=== PATIENT | female | born 1975 | race Caucasian/White ===

== ENCOUNTER → 2025-01-06 09:38 | Outpatient (CLI) | payer OTHER, SELFPAY ==
[2025-01-06 10:54] LABS: Add Manual Diff / Slide Review NO; Hematocrit 33.7 % (36-46); Hemoglobin 10.7 g/dL (12.0-16.0); Lymphocytes Absolute Auto 1400 /uL (1100-4500); Mean Corpuscular HGB Conc 31.8 % (30-36); Mean Corpuscular Hemoglobin 22.0 PG (26-34); Mean Corpuscular Volume 69.3 fL (80-100); Platelet Count 392 X10^3/uL (150-400)
[2025-01-06 11:35] LABS: Alanine Aminotransferase 24 IU/L (<35); Albumin 4.5 g/dL (3.5-5.0); Albumin Globulin Ratio 1.6 (1.0-2.8); Alkaline Phosphatase 75 U/L (38-126); Blood Urea Nitrogen 16 mg/dL (7-17); Calcium 9.2 mg/dL (8.4-10.2); Carbon Dioxide 25 mmol/L (22-32); Chloride 104 mmol/L (98-107); Cholesterol 228 mg/dL (140-199); Estimated Glomerular Filt Rate > 60 mL/min (>60); Globulin 2.9 g/dL (1.7-4.1); Glucose 85 mg/dL (70-99); HDL Cholesterol 65 mg/dL (40-60); HEMOLYSIS < 15 (0-50); Potassium 4.0 mmol/L (3.4-5.1); Sodium 137 mmol/L (137-145); Total Protein 7.4 g/dL (6.3-8.2); Triglycerides 60 mg/dL (35-150)
[2025-01-06 11:46] LABS: Anisocytosis 1+; Microcytosis 1+
[2025-01-06 11:50] LABS: Follicle Stimulating Hormone 26.9 mIU/mL
[2025-01-06 12:05] LABS: TSH w/ Reflex to FT4 0.90 uIU/mL (0.47-4.68)
== END ==
LOC: LAB 09:39
PROVIDERS: PCP Family Medicine; Referring Provider Family Medicine; Visit Provider Family Medicine
DX: N93.9 Abnormal uterine and vaginal bleeding, unspecified (principal); R53.82 Chronic fatigue, unspecified; Z82.49 Family history of ischemic heart disease and other diseases of the circulatory system
CPT/HCPCS: 36415; 80053; 80061; 83001; 83002; 84146; 84443; 85025

== ENCOUNTER → 2025-01-12 07:42 | Outpatient (CLI) | payer OTHER, SELFPAY ==
--- NOTE | 2025-01-12 07:43 | DI.US.S_ITS ---
PROCEDURE: US PELVIC COMPLETE INDICATIONS: AUB TECHNIQUE: Real-time scanning was performed of the pelvic organs, with image documentation. Additional endovaginal scanning was necessary due to incomplete visualization of the adnexal and endometrial structures by transabdominal scanning. COMPARISON: None. FINDINGS: Uterus: 8.6 x 3.7 x 4.9 cm. Retroverted positioning. Endometrium measures 6 mm. Ovaries: Nonenlarged ovaries, measuring 3 cc bilaterally. Other: Prominent left uterine vessels are seen. IMPRESSION: Retroverted uterus. Endometrium measures 6 mm, which is within normal limits assuming patient is premenopausal. Nonenlarged ovaries. Distended left periuterine vessels, which can sometimes be associated with pelvic congestion. Dictated by: Kang Ballesteros M.D. on 01/12/2025 at 8:27 Approved by: Kang Ballesteros M.D. on 01/12/2025 at 8:28
== END ==
LOC: US 07:43
PROVIDERS: PCP Family Medicine; Referring Provider Family Medicine; Visit Provider Family Medicine
DX: N93.9 Abnormal uterine and vaginal bleeding, unspecified (principal); N85.4 Malposition of uterus
CPT/HCPCS: 76830; 76856

== ENCOUNTER → 2025-01-18 15:05 | Outpatient (CLI) | payer OTHER, SELFPAY ==
--- NOTE | 2025-01-18 15:07 | DI.MG.S_ITS ---
MM screening mammo BI: 01/18/2025. BI-RADS: 2 CLINICAL: 49-year old female for bilateral screening mammogram. Tyrer-Cuzick lifetime risk of 9.1%. No personal or first-degree family history of breast cancer. PRIOR EXAMS: 02/06/2023. MAMMOGRAPHY TECHNIQUE: 2D and 3D (tomosynthesis) digital mammographic views obtained, with additional images as needed for full coverage. Current study was also evaluated with a Computer Aided Detection (CAD) system. DENSITY C. The breasts are heterogeneously dense, which may obscure small masses. MAMMOGRAPHY FINDINGS Bilateral: Benign-appearing masses noted. There are no suspicious masses, calcifications, or other findings in the breast. IMPRESSION: * No evidence of malignancy with benign findings. RECOMMENDATIONS Bilateral * Annual screening mammography. OVERALL ASSESSMENT CATEGORY BI-RADS-2: Benign. [employer] recommends annual screening mammography beginning at age 40 for women with average risk of breast cancer. ELECTRONICALLY SIGNED: Poonam Sage M.D. on 01/20/2025 at 12:54:53 PM PT Interpreting Station ID: [id number]
== END ==
LOC: MAMMO 15:06
PROVIDERS: PCP Family Medicine; Referring Provider Family Medicine; Visit Provider Family Medicine
DX: Z12.31 Encounter for screening mammogram for malignant neoplasm of breast (principal)
CPT/HCPCS: 77063; 77067

== ENCOUNTER 2025-04-02 07:15 | Day surgery (SDC) | payer OTHER, SELFPAY ==
[2025-04-02] MEDS: LACTATED RINGERS 1,000 ML 42 ML IV (07:32)
[2025-04-02 07:37] VITALS: BP 118/64; PULSE 68; RESP 16; TEMP 36.4; O2SAT 98
--- NOTE | 2025-04-02 08:08 | P.HP_ITS ---
History of Present Illness History of Present Illness Date Patient Seen: 04/02/25 Time Patient Seen: 08:08 Chief complaint: SDC Narrative: Anjelica is a 49-year-old woman here for her her first screening colonoscopy. No family history of colon cancer. PFSH Social History Smoking Status: Never smoker alcohol intake: current Meds Home Medications and Allergies Home Medications ?Medication ?Instructions ?Recorded ?Confirmed ?Type sumatriptan succinate 50 mg tablet See Rx Instructions PO .COMPLEX 12/10/24 04/02/25 Rx #10 tabs Allergies Allergy/AdvReac Type Severity Reaction Status Date / Time No Known Drug Allergies Allergy Verified 04/02/25 07:37 Exam Vital Signs (past 8 hours): - 04/02/25 07:37 Temperature 97.6 F Pulse Rate 68 Respiratory Rate 16 Blood Pressure 118/64 Pulse Oximetry 98 Oxygen Delivery Method Room Air Oxygen Delivery Method Room Air Const General: healthy appearing Assessment & Plan Assessment and plan (1) Colon cancer screening: Status: Acute Plan Colonoscopy Time-Based Coding :: [TOTAL MINUTES] spent with patient and on the chart (including review of chart, obtaining history, exam, reviewing outside data, placing orders, documenting exam and treatment plan, and counseling patient) on [DATE]. [employer] Specialist Document charge(s): No
[2025-04-02 08:41] VITALS: BP 107/72; PULSE 84; RESP 18; O2SAT 99
--- NOTE | 2025-04-02 08:42 | P.OP.COLON_ITS ---
Operative Date/Time/Diagnoses Date of procedure: 04/02/25 Time of procedure: 08:42 Pre-op diagnosis: Colon cancer screening Post-op diagnosis: same Procedure & Clinicians Study performed: Colonoscopy Same procedure(s) as scheduled: Yes Surgeon: Adam Mejia Anesthesia Type: MAC +/- Procedure Notes Procedure in detail: Surgeon: Adam Mejia MD Anesthesia: Teresa Kiki ISO COORDINATOR Procedure: The patient was brought to the endoscopy suite, placed in left lateral decubitus position. The patient was connected to monitoring devices. A time-out was performed. Sedation was administered. Once the patient was adequately sedated, a digital rectal exam was performed and was normal. The scope was then inserted and advanced to the cecum where the appendiceal orifice was identified and photographed. The scope was then slowly withdrawn over greater than 6 minutes. The mucosa was thoroughly inspected. No abnormalities were identified. The scope was retroflexed in the rectum. The scope was straightened and removed. The patient was awakened and brought to recovery. Scope withdrawal time: 9 minutes Sedation time: 17 minutes EBL: 0 Findings: Normal colon Post-procedure Recommendations: Colonoscopy in 10 years Disposition: PACU
[2025-04-02 08:46] VITALS: BP 115/72; PULSE 66; RESP 24; TEMP 36.3; O2SAT 99
[2025-04-02 08:52] VITALS: BP 123/73; PULSE 54; RESP 23; TEMP 36.3; O2SAT 99
[2025-04-02 08:56] VITALS: BP 124/83; PULSE 52; RESP 25; TEMP 36.3; O2SAT 100
== END 2025-04-02 09:07 | disposition home or self-care (01) ==
PROVIDERS: PCP Family Medicine; Referring Provider Surgery; Visit Provider Surgery
PROC: 0DJD8ZZ Inspection of Lower Intestinal Tract, Via Natural or Artificial Opening Endoscopic (ICD-10-PCS; CPT 45378; principal; 2025-04-02 08:15)
DX: Z12.11 Encounter for screening for malignant neoplasm of colon (principal)
CPT/HCPCS: 45378; J2704; J7120